=== PATIENT | female | born 1940 | race Caucasian/White ===

== ENCOUNTER 2018-01-07 09:36 | Emergency (ER) | payer OTHER ==
[2018-01-07] MEDS ORDERED: ACETAMINOPHEN 325 MG TABLET (FP) PO ONE (09:56)
[2018-01-07] MEDS ORDERED: ACETAMINOPHEN 325 MG TABLET (FP) ONE (09:58)
[2018-01-07 09:59] VITALS: BMI 21.4
--- NOTE | 2018-01-07 10:06 | PDOC ---
History of Present Illness - General Chief Complaint: Injury Stated Complaint: FELL Time Seen by Provider: 01/07/18 09:43 - History of Present Illness Initial Comments: 01/07/18 10:08 "The patient is a pleasant 78 year old female, with a past medical history of Alzheimers, vertigo, HTN, GERD, who was BIBA with her morning aide s/p mechanical fall around 7:55 am. Patient states that she was getting out of the shower and bent down to dry herself when she hit herself on the sink. She reports subsequently falling onto her left side. Her aide states that the fall was witnessed by the night aide. Pt denies ever having any CP/SOB/palpitations. Was slightly lightheaded upon getting up from the ground but denies any lightheadedness preceding the fall. The patient is now complaining of a slight headache. Denies N/V. Denies neck pain. Was able to ambulate with help afterwards. Denies pain in her arms or legs. Past History - Past Medical History Allergies/Adverse Reactions: Allergies Allergy/AdvReac Type Severity Reaction Status Date / Time No Known Allergies Allergy Verified 01/07/18 09:45 Home Medications: Ambulatory Orders Alprazolam [Xanax] 0.25 mg PO PRN 01/07/18 Azithromycin [Zithromax -] 250 mg PO UTDICT 01/07/18 Galantamine HBr 16 mg PO HS 01/07/18 Lisinopril [Zestril] 2.5 mg PO HS 01/07/18 Meclizine HCl 12.5 mg PO PRN 01/07/18 Memantine HCl [Namenda -] 28 mg PO DAILY 01/07/18 Mirtazapine [Remeron -] 15 mg PO DAILY 01/07/18 Ondansetron [Zofran -] 4 mg PO PRN 01/07/18 Pantoprazole Sodium [Protonix] 40 mg PO DAILY 01/07/18 Polyvinyl Alcohol [Artificial Tears] 1 drop OD PRN 01/07/18 COPD: No Dementia: Yes (early onset) HTN: Yes - Immunization History Immunization Up to Date: Yes - Suicide/Smoking/Psychosocial Hx Smoking History: Never smoked Substance Use Type: None Review of Systems - Review of Systems Comments:: 01/07/18 10:10 "GENERAL/CONSTITUTIONAL: No fever or chills. No weakness. HEAD, EYES, EARS, NOSE AND THROAT: No change in vision. No ear pain or discharge. No sore throat. CARDIOVASCULAR: No chest pain or shortness of breath. RESPIRATORY: No cough, wheezing, or hemoptysis. GASTROINTESTINAL: No nausea, vomiting, diarrhea or constipation. GENITOURINARY: No dysuria, frequency, or change in urination. MUSCULOSKELETAL: No neck or back pain. SKIN: No rash NEUROLOGIC: +headache, no loss of consciousness, or change in strength/ sensation. ENDOCRINE: No increased thirst. No abnormal weight change. HEMATOLOGIC/LYMPHATIC: No anemia, easy bleeding, or history of blood clots. ALLERGIC/IMMUNOLOGIC: No hives or skin allergy." *Physical Exam - Vital Signs Last Vital Signs Temp Pulse Resp BP Pulse Ox 98.1 F 60 20 156/66 100 01/07/18 09:42 01/07/18 09:42 01/07/18 09:42 01/07/18 09:42 01/07/18 09:42 - Physical Exam Comments: 01/07/18 10:02 "GENERAL: Awake, alert, in no acute distress. HEAD: + small hematoma to forehead, no laceration or abrasion EYES: PERRLA, EOMI, sclera anicteric, conjunctiva clear ENT: Auricles normal inspection, hearing grossly normal, nares patent, oropharynx clear without exudates. Moist mucosa NECK: Nontender, no stepoffs, Normal ROM, supple, no lymphadenopathy, JVD, or masses LUNGS: Breath sounds equal, clear to auscultation bilaterally. No wheezes, and no crackles HEART: Regular rate and rhythm, normal S1 and S2, no murmurs, rubs or gallops ABDOMEN: Soft, nontender, normoactive bowel sounds. No guarding, no rebound. No masses EXTREMITIES: + L pelvic tenderness, no deformity, Normal range of motion, No clubbing or cyanosis. No cords, erythema, or tenderness NEUROLOGICAL: Cranial nerves II through XII intact. 5/5 strength and sensation in all extremities, Normal speech, normal gait, normal cerebellar function SKIN: Warm, Dry, normal turgor, no rashes or lesions noted. " Heart Score/ECG Review - ECG Impressions Comment:: 01/07/18 10:02 NSR, no DIMAS/STDs, no TWIs, L axis deviation, intervals wnl, rate 60 ED Treatment Course - RADIOLOGY Radiology Studies Ordered: Category Date Time Status HEAD CT WITHOUT CONTRAST [CT] Stat CT Scan 01/07/18 09:[address] WITHOUT CONTRAST [CT] Stat CT Scan 01/07/18 09:55 Ordered - Medications Given in the ED: ED Medications Discontinued Medications Generic Name Dose Route Start Last Admin Trade Name Erma PRN Reason Stop Dose Admin Acetaminophen 650 mg 01/07/18 09:56 01/07/18 10:00 Tylenol - PO 01/07/18 09:57 650 mg ONCE ONE Administration Medical Decision Making - Medical Decision Making 01/07/18 10:00 78 F with head injury and fall, mechanical in nature, witnessed by aide. Exam with small forehead hematoma and L hip tenderness - CT head - CT pelvis - Tylenol 01/07/18 11:03 CTs negative for fx and bleed Pt is well appearing, with normal vitals. Clinically stable for DC at this time. I discussed the physical exam findings, ancillary test results and final diagnoses with the patient. I answered all of the patient's questions. The patient was satisfied with the care received and felt comfortable with the discharge plan and treatment plan. The patient agrees to follow up with the primary care physician within 24-72 hours. *DC/Admit/Observation/Transfer Diagnosis at time of Disposition: Fall - Discharge Dispostion Disposition: HOME - Referrals - Patient Instructions Printed Discharge Instructions: How to Prevent Falls Additional Instructions: Take tylenol or motrin as needed for pain. If you experience worsening headache, nausea, vomiting, chest pain, shortness of breath, or any other concerning symptoms, return to the ER immediately. Otherwise, follow up with your primary doctor in 1-2 weeks. - Post Discharge Activity - Attestations Physician Attestion: 01/07/18 11:04 I, Dr. Mike Boyd MD, attest that this document has been prepared under my direction and personally reviewed by me in its entirety. I further attest, that it accurately reflects all work, treatment, procedures and medical decision -making performed by me.
[2018-01-07 11:28] VITALS: BP 135/80; PULSE 87; TEMP 98.3
--- NOTE | 2018-01-08 17:35 | EKG ---
Test Reason : Blood Pressure : / mmHG Vent. Rate : 060 BPM Atrial Rate : 060 BPM P-R Int : 176 ms QRS Dur : 092 ms QT Int : 414 ms P-R-T Axes : 056 -30 042 degrees QTc Int : 414 ms NORMAL SINUS RHYTHM LEFT AXIS DEVIATION ABNORMAL ECG NO PREVIOUS ECGS AVAILABLE Confirmed by DOMINGO COLUNGA MD ([id number]) on 01/08/2018 5:35:38 PM Referred By: Confirmed By:DOMINGO COLUNGA MD
== END 2018-01-07 11:28 | disposition home or self-care (01) ==
LOC: JER 09:36
DX: S09.8XXA Other specified injuries of head, initial encounter (principal); S00.83XA Contusion of other part of head, initial encounter; M25.552 Pain in left hip; W18.09XA Striking against other object with subsequent fall, initial encounter; Y93.E1 Activity, personal bathing and showering; Y92.091 Bathroom in other non-institutional residence as the place of occurrence of the external cause; Y99.8 Other external cause status; I10 Essential (primary) hypertension; K21.9 Gastro-esophageal reflux disease without esophagitis; G30.8 Other Alzheimer's disease; F02.80 Dementia in other diseases classified elsewhere, unspecified severity, without behavioral disturbance, psychotic disturbance, mood disturbance, and anxiety
CPT/HCPCS: 70450-TC; 72192-TC; 93005; 93010; 99284-25